=== PATIENT | male | born 1995 | race Caucasian/White ===

== ENCOUNTER 2017-08-14 22:27 | Emergency (ER) | payer OTHER ==
[~2017-08-14] VITALS: Ht 180.3 cm; Wt 113.4 kg
[~2017-08-14 22:27] MED LIST: ACHD5005 PO; AMOX500C2 PO; CEPH-38 PO; IBP600T1 PO; LRT10T PO; ONDA8TAB13 PO; SERT50TA PO
--- OUTSIDE RECORDS SUMMARY | 2017-08-14 22:33 | XMS REPORT | Continuity of Care Document ---
Author Author Formerly [facility] Address Unknown Phone Unavailable Allergies Active Description Code Type Severity Reaction Onset Reported/Identified Relationship to Patient Clinical Status Yes codeine [id number] Drug Allergy Mild SWELLING, RASH 06/07/2008 Yes CODIENE CODIENE Mild N/A 07/21/2008 Yes codeine Drug Allergy 11/13/2009 Yes codeine Drug Allergy N/A N/A 11/13/2009 Yes OPIOIDS OPIOIDS Severe N/A 01/05/2015 Medications There is no data. Problems Date Dx Coded Attending Type Code Diagnosis Diagnosed By 09/30/2008 DONY WAITE DO3.89 Meningococcal, Other Specified Single Bacterial Disease 09/30/2008 DONY WAITE DO V05.3 Hepatitis Viral/all 09/30/2008 DONY WAITE DO V06.4 Mmr, Jssbcxb-loelq-vsrdzzj Vac 09/30/2008 DONY WAITE DO V06.5 Dt, Tetanus-diphtheria [td] ,tdap 09/30/2008 DONY WAITE DO V03.89 Meningococcal, Other Specified Single Bacterial Disease 09/30/2008 DONY WAITE DO V05.3 Hepatitis Viral/all 09/30/2008 DONY WAITE DO V06.4 Mmr, Phmsapo-iqajn-dcskviw Vac 09/30/2008 DONY WAITE DO V06.5 Dt, Tetanus-diphtheria [td] ,tdap 09/30/2008 NATALIE AMADOR APRN V03.89 Meningococcal, Other Specified Single Bacterial Disease 09/30/2008 NATALIE AMADOR APRN V05.3 Hepatitis Viral/all 09/30/2008 NATALIE AMADOR APRN V06.4 Mmr, Ejnrgjq-zsjjl-mvadgro Vac 09/30/2008 NATALIE AMADOR APRN V06.5 Dt, Tetanus-diphtheria [td] ,tdap 09/30/2008 NATALIE AMADOR APRN V03.89 Meningococcal, Other Specified Single Bacterial Disease 09/30/2008 MARJORIE BLOOD, NATALIE Farrar V05.3 Hepatitis Viral/all 09/30/2008 MARJORIE BLOOD, NATALIE Leni V06.4 Mmr, Jiwjbaj-ywpil-wxmlhrj Vac 09/30/2008 MARJORIE ESTEBANN, NATALIE Farrar V06.5 Dt, Tetanus-diphtheria [td] ,tdap 09/30/2008 V03.89 Meningococcal , Other Specified Single Bacterial Disease 09/30/2008 V05.3 Hepatitis Viral/all 09/30/2008 V06.4 Mmr, Measles- mumps-rubella Vac 09/30/2008 V06.5 Dt, Tetanus- diphtheria [td] ,tdap 09/30/2008 V03.89 Meningococcal , Other Specified Single Bacterial Disease 09/30/2008 V05.3 Hepatitis Viral/all 09/30/2008 V06.4 Mmr, Measles- mumps-rubella Vac 09/30/2008 V06.5 Dt, Tetanus- diphtheria [td] ,tdap 09/30/2008 V03.89 Meningococcal , Other Specified Single Bacterial Disease 09/30/2008 V05.3 Hepatitis Viral/all 09/30/2008 V06.4 Mmr, Measles- mumps-rubella Vac 09/30/2008 V06.5 Dt, Tetanus- diphtheria [td] ,tdap 09/30/2008 OBED BRIZUELA APRN V03.89 Meningococcal, Other Specified Single Bacterial Disease 09/30/2008 OBED BRIZUELA APRN V05.3 Hepatitis Viral/all 09/30/2008 OBED BRIZUELA APRN V06.4 Mmr, Xjtxrsx-fvpjg-rrkshbz Vac 09/30/2008 OBED BRIZUELA APRN V06.5 Dt, Tetanus-diphtheria [td] ,tdap 12/26/2008 DONY WAITE DO 461.9 Acute Sinusitis, Unspecified 12/26/2008 DONY WAITE DO 466.0 Acute Bronchitis 12/26/2008 DONY WAITE DO 461.9 Acute Sinusitis, Unspecified 12/26/2008 DONY WAITE DO 466.0 Acute Bronchitis 12/26/2008 NATALIE AMADOR APRN 461.9 Acute Sinusitis, Unspecified 12/26/2008 NATALIE AMADOR APRN 466.0 Acute Bronchitis 12/26/2008 NATALIE AMADOR APRN 461.9 Acute Sinusitis, Unspecified 12/26/2008 NATALIE AMADOR APRN 466.0 Acute Bronchitis 12/26/2008 461.9 Acute Sinusitis, Unspecified 12/26/2008 466.0 Acute Bronchitis 12/26/2008 461.9 Acute Sinusitis, Unspecified 12/26/2008 466.0 Acute Bronchitis 12/26/2008 461.9 Acute Sinusitis, Unspecified 12/26/2008 466.0 Acute Bronchitis 12/26/2008 OBED BRIZUELA APRN 461.9 Acute Sinusitis, Unspecified 12/26/2008 OBED BRIZUELA APRN 466.0 Acute Bronchitis 05/31/2009 DONY WAITE DO V05.4 Varicella, Chickenpox 05/31/2009 DONY WAITE DO V05.4 Varicella, Chickenpox 05/31/2009 NATALIE AMADOR APRN V05.4 Varicella, Chickenpox 05/31/2009 NATALIE AMADOR APRN V05.4 Varicella, Chickenpox 05/31/2009 V05.4 Varicella, Chickenpox 05/31/2009 V05.4 Varicella, Chickenpox 05/31/2009 V05.4 Varicella, Chickenpox 05/31/2009 OBED BRIZUELA APRN V05.4 Varicella, Chickenpox 07/23/2009 Ot 923.20 07/23/2009 Ot 959.4 07/23/2009 Ot E000.8 07/23/2009 Ot E030 07/23/2009 Ot E849.0 07/23/2009 Ot E880.9 11/13/2009 DONY WAITE DO 465.9 Upper Respiratory Infection 11/13/2009 DONY WAITE DO 691.8 Dermatitis Atopic Eczema 11/13/2009 DONY WAITE DO 465.9 Upper Respiratory Infection 11/13/2009 DONY WAITE DO 691.8 Dermatitis Atopic Eczema 11/13/2009 NATALIE AMADOR APRN 465.9 Upper Respiratory Infection 11/13/2009 NATALIE AMADOR APRN 691.8 Dermatitis Atopic Eczema 11/13/2009 NATALIE AMADOR APRN 465.9 Upper Respiratory Infection 11/13/2009 NATALIE AMADOR APRN 691.8 Dermatitis Atopic Eczema 11/13/2009 465.9 Upper Respiratory Infection 11/13/2009 691.8 Dermatitis Atopic Eczema 11/13/2009 465.9 Upper Respiratory Infection 11/13/2009 691.8 Dermatitis Atopic Eczema 11/13/2009 465.9 Upper Respiratory Infection 11/13/2009 691.8 Dermatitis Atopic Eczema 11/13/2009 OBED BRIZUELA APRN 465.9 Upper Respiratory Infection 11/13/2009 OBED BRIZUELA APRN 691.8 Dermatitis Atopic Eczema 12/27/2009 DONY WAITE DO 078.10 VIRAL WARTS UNSPECIFIED 12/27/2009 DONY WAITE DO 078.10 VIRAL WARTS UNSPECIFIED 12/27/2009 NATALIE AMADOR APRN 078.10 VIRAL WARTS UNSPECIFIED 12/27/2009 NATALIE AMADOR APRN 078.10 VIRAL WARTS UNSPECIFIED 12/27/2009 078.10 VIRAL WARTS UNSPECIFIED 12/27/2009 078.10 VIRAL WARTS UNSPECIFIED 12/27/2009 078.10 VIRAL WARTS UNSPECIFIED 12/27/2009 OBED BRIZUELA APRN 078.10 VIRAL WARTS UNSPECIFIED 02/07/2011 DONY WAITE DO 787.03 Vomiting Alone 02/07/2011 DONY WAITE DO V04.81 Flu Dx (3 Yrs And Above, Im) 02/07/2011 DONY WAITE DO 787.03 Vomiting Alone 02/07/2011 DONY WAITE DO V04.81 Flu Dx (3 Yrs And Above, Im) 02/07/2011 NATALIE AMADOR APRN 787.03 Vomiting Alone 02/07/2011 NATALIE AMADOR APRN V04.81 Flu Dx (3 Yrs And Above, Im) 02/07/2011 NATALIE AMADOR APRN 787.03 Vomiting Alone 02/07/2011 NATALIE AMADOR APRN V04.81 Flu Dx (3 Yrs And Above, Im) 02/07/2011 787.03 Vomiting Alone 02/07/2011 V04.81 Flu Dx (3 Yrs And Above, Im) 02/07/2011 787.03 Vomiting Alone 02/07/2011 V04.81 Flu Dx (3 Yrs And Above, Im) 02/07/2011 787.03 Vomiting Alone 02/07/2011 V04.81 Flu Dx (3 Yrs And Above, Im) 02/07/2011 OBED BRIZUELA APRN 787.03 Vomiting Alone 02/07/2011 OBED BRIZUELA APRN V04.81 Flu Dx (3 Yrs And Above, Im) 03/13/2011 DONY WAITE DO 558.9 GASTROENTERITIS 03/13/2011 DONY WAITE DO 558.9 GASTROENTERITIS 03/13/2011 NATALIE AMADOR APRN 558.9 GASTROENTERITIS 03/13/2011 NATALIE AMADOR APRN 558.9 GASTROENTERITIS 03/13/2011 558.9 GASTROENTERITIS 03/13/2011 558.9 GASTROENTERITIS 03/13/2011 558.9 GASTROENTERITIS 03/13/2011 OBED BRIZUELA APRN 558.9 GASTROENTERITIS 08/19/2011 Ot 780.4 08/19/2011 Ot 992.5 08/19/2011 Ot E000.8 08/19/2011 Ot E900.9 01/06/2012 DONY WAITE DO 787.01 NAUSEA WITH VOMITING 01/06/2012 DONY WAITE DO 787.01 NAUSEA WITH VOMITING 01/06/2012 NATALIE AMADOR APRN 787.01 NAUSEA WITH VOMITING 01/06/2012 NATALIE AMADOR APRN 787.01 NAUSEA WITH VOMITING 01/06/2012 787.01 NAUSEA WITH VOMITING 01/06/2012 787.01 NAUSEA WITH VOMITING 01/06/2012 787.01 NAUSEA WITH VOMITING 01/06/2012 OBED BRIZUELA APRN 787.01 NAUSEA WITH VOMITING 05/13/2012 DONY WAITE DO 346.90 MIGRAINE HEADACHE 05/13/2012 NATALIE AMADOR APRN 346.90 MIGRAINE HEADACHE 05/13/2012 NATALIE AMADOR APRN 346.90 MIGRAINE HEADACHE 05/13/2012 346.90 MIGRAINE HEADACHE 05/13/2012 346.90 MIGRAINE HEADACHE 05/13/2012 346.90 MIGRAINE HEADACHE 05/13/2012 OBED BRIZUELA APRN 346.90 MIGRAINE HEADACHE 06/03/2012 NATALIE AMADOR APRN 780.99 ANHEDONIA 06/03/2012 780.99 ANHEDONIA 06/03/2012 780.99 ANHEDONIA 06/03/2012 780.99 ANHEDONIA 06/03/2012 OBED BRIZUELA APRN 780.99 ANHEDONIA 07/29/2012 692.0 CONTACT DERMATITIS DUE TO DETERGENTS 07/29/2012 692.0 CONTACT DERMATITIS DUE TO DETERGENTS 07/29/2012 OBED BRIZUELA APRN 692.0 CONTACT DERMATITIS DUE TO DETERGENTS 08/04/2012 300.23 AN SOCIAL PHOBIA 08/04/2012 314.01 ADHD COMBINED 08/04/2012 OBED BRIZUELA APRN 300.23 AN SOCIAL PHOBIA 08/04/2012 OBED BRIZUELA APRN 314.01 ADHD COMBINED 08/19/2012 JT DONNELLY DO Ot 724.2 LUMBAGO 07/19/2013 MELQUIADES FOSTER Ot 276.50 VOLUME DEPLETION, UNSPECIFIED 07/19/2013 MELQUIADES FOSTER Ot 784.0 HEADACHE 07/19/2013 MELQUIADES FOSTER Ot 787.01 NAUSEA WITH VOMITING 07/19/2013 MELQUIADES FOSTER Ot 787.91 DIARRHEA 01/05/2015 MAGY PHILLIP MD Ot R10.84 GENERALIZED ABDOMINAL PAIN 01/06/2015 MAGY PHILLIP MD Ot R10.84 Procedures Code [place] [address] ROUTINE VENIPUNCTURE 05/21/2012 23320 CMP 05/21/2012 64077 TSH 05/21/2012 39119 CBC 05/21/2012 PSYCH NORRISFATEMEH FARLEY 06/03/2012 74835 PSYCH DIAG EVAL W/MED SRVCS 08/04/2012 Results There is no data. Encounters ACCT No. Visit Date/Time Discharge Status Pt. Type Provider Facility Loc./Unit Complaint [id number] 08/04/2012 12:25:00 08/04/2012 23:59:59 CLS Outpatient OBED BRIZUELA APRN [id number] 06/03/2012 12:55:00 06/03/2012 23:59:59 CLS Outpatient NATALIE AMADOR APRN [id number] 05/21/2012 15:40:00 05/21/2012 23:59:59 CLS Outpatient NATALIE AMADOR APRN [id number] 05/13/2012 14:32:00 05/13/2012 23:59:59 [place] [id number] 05/31/2011 11:57:00 05/31/2011 23:59:59 CLS Outpatient DONY WAITE DO [id number] 08/04/2012 12:25:00 Document Registration [id number] 07/29/2012 11:55:00 Document Registration [id number] 07/25/2012 09:32:00 Document Registration [id number] 01/05/2015 13:32:00 01/05/2015 15:24:00 DIS Emergency MAGY PHILLIP MD [facility] ER ABD PAIN [id number] 07/19/2013 12:59:00 07/19/2013 23:59:59 CLS Emergency MELQUIADES FOSTER [facility] ER DIZZINESS, HEADACHE [id number] 11/01/2012 15:23:00 11/01/2012 23:59:59 CLS Outpatient [id number] 10/23/2012 14:54:00 10/23/2012 23:59:59 CLS Outpatient [id number] 08/22/2012 13:19:00 08/22/2012 23:59:59 CLS Outpatient [id number] 08/19/2012 13:44:00 08/19/2012 17:10:00 DIS Emergency JT DONNELLY DO [facility] ER BACK PAIN [id number] 08/08/2012 14:02:00 08/08/2012 23:59:59 CLS Outpatient [id number] 07/28/2012 08:52:00 07/28/2012 23:59:59 CLS Outpatient [id number] 08/14/2017 22:28:00 ACT Emergency ZANE TINSLEY MD [facility] ER HAND INJ [id number] 08/19/2011 17:52:00 Document Registration [id number] 07/23/2009 21:02:00 Document Registration
--- NOTE | 2017-08-14 23:39 | ED Upper Extremity ---
General Chief Complaint: Laceration Stated Complaint: HAND INJ Nursing Triage Note: patient reports laceration to L hand after a knife went through it Nursing Sepsis Screen: No Definite Risk Source: patient Exam Limitations: no limitations History of Present Illness Date Seen by Provider: Aug 14, 2017 Time Seen by Provider: 23:33 Initial Comments The patient presents to the ER by private conveyance with a chief complaint he was trying to find the balance point on a knife and it fell out of his hand towards his foot so he skipped his left hand down to catch it and it stabbed him through the webbing between his first and second digits completely penetrating his hand. He cleaned the wound out himself with hydrogen peroxide and then came here to the ER. He has not taken anything for pain. He has allergies to codeine and opiates. He's having no nausea and only modest pain. It is not bleeding any longer. Allergies and Home Medications Allergies Coded Allergies: codeine (Unverified Allergy, Mild, SWELLING, RASH, 06/07/08) Uncoded Allergies: OPIOIDS (Allergy, Severe, 01/05/15) CODIENE (Allergy, Mild, 07/21/08) Home Medications Sulfamethoxazole/Trimethoprim 1 Each Tablet, 1 EACH PO BID Prescribed by: ZANE TINSLEY on 08/15/17 0128 Patient Home Medication List Home Medication List Reviewed: Yes Constitutional: No chills, No fever EENTM: No hearing loss, No ear pain Respiratory: No cough, No short of breath Cardiovascular: No chest pain, No edema Gastrointestinal: No abdominal pain, No constipation, No diarrhea Past Symizuo-Vbxuoz-Gnfugs Hx Patient Social History Alcohol Use: Denies Use Recreational Drug Use: No Smoking Status: Never a Smoker Recent Foreign Travel: No Contact w/Someone Who Travel: No Recent Infectious Disease Expo: No Seasonal Allergies Seasonal Allergies: Yes Past Medical History Surgeries: No Respiratory: No Cardiac: No Neurological: No Gastrointestinal: No Musculoskeletal: No Endocrine: No Cancer: No Psychosocial: Yes Anxiety Physical Exam Vital Signs Vital Signs - First Documented 08/14/17 23:34 Temp 98.5 Pulse 69 Resp 18 B/P (MAP) 137/97 (110) Pulse Ox 100 Capillary Refill : Less Than 3 Seconds General Appearance: WD/WN, no apparent distress HEENT: PERRL/EOMI, pharynx normal Cardiovascular: normal peripheral pulses, regular rate, rhythm Respiratory: no respiratory distress, no accessory muscle use Wrist: Yes normal inspection, Yes non-tender, Yes no evidence of injury, Yes normal ROM Hand: Left (through and through laceration in the soft tissue of the webbing between first and second digits) Neurologic/Tendon: normal sensation, normal motor functions, normal tendon functions, responds to pain, no evidence tendon injury Neurologic/Psychiatric: alert, normal mood/affect, oriented x 3 Skin: normal color, warm/dry Procedures/Interventions Wound Location: Upper Extremities Other Wound Location Left hand in the webbing between the first and second digit Wound's Depth, Shape: linear (through and through) Wound Explored: clean Irrigated w/ Saline (ccs): 250 Betadine Prep?: Yes Anesthesia: 1% Lidocaine Volume Anesthetic (ccs): 9 Wound Debrided: minimal Suture: Prolene, Vicryl (40) Suture Size: 4-0 Number of Sutures: 8 Layer Closure?: 1 Number Deep Layer Sutures: 1 Progress Patient's hand was cleaned thoroughly with chlorhexidine soap water and then the exterior was doused with Betadine. The wound was then gently cleansed and irrigated with normal saline and infiltrated in a ring fashion around the wound with 1% lidocaine without epinephrine and a small artery approximately 1 mm or less diameter began to exsanguinate. He was cross clamped with the curved hemostat and pressure was applied for 25 minutes. The clamp was removed and the artery was hemostatic so began to suture within the artery started bleeding again. We re-cleaned with chlorhexidine soap water blotted and cross clamped the artery again lifting it and tying a Vicryl 40 ligature across the artery causing instant hemostasis. The wound was then flushed again with saline and skin edges were reapproximated and closed with 5 4-0 Prolene simple interrupted sutures on the 2.5 cm palmar side and then the wound was re-cleaning and the dorsal 1 cm wound was reapproximated and closed with 2 4-0 Prolene sutures that were simple interrupted. The patient tolerated the procedure well. Progress/Results/Core Measures Results/Orders My Orders Orders - ZANE TINSLEY Pertuss(Acell),Tet Adult (Boostrix (08/14/17 23:45) Lidocaine 1% Inj 20 Ml (Xylocaine 1% Inj (6/21/18 23:45) Ketorolac Injection (Toradol Injection) (08/14/17 23:45) Medications Given in ED Current Medications Medications Dose Ordered Sig/Ned Route Start Time Stop Time Status Last Admin Dose Admin Diphtheria/ Tetanus/Acell Pertussis 0.5 ml ONCE ONCE IM 08/14/17 23:45 08/14/17 23:46 DC 08/14/17 23:46 0.5 ML Ketorolac Tromethamine 30 mg ONCE ONCE IM 08/14/17 23:45 08/14/17 23:46 DC 08/14/17 23:46 30 MG Lidocaine HCl 20 ml ONCE ONCE INJ 08/14/17 23:45 08/14/17 23:46 DC 08/15/17 00:25 5 ML Vital Signs/I&O 08/14/17 08/15/17 23:34 01:30 Temp 98.5 98.5 Pulse 69 69 Resp 18 18 B/P (MAP) 137/97 (110) 137/97 (110) Pulse Ox 100 100 Blood Pressure Mean: 110 Progress Progress Note : Time: :26 Progress Note After the wound was re-closed it was hemostatic and there is no swelling noted immediately. The fingertips had capillary refill 5 all less than 2 seconds and there is a good radial pulse palpable and symmetric to the right hand. He had good flexion and extension of his hand complete range of motion. Sensation was intact except around the wound where it had been anesthetized. Departure Impression Primary Impression: Laceration of hand, left Qualified Codes: S61.412A - Laceration without foreign body of left hand, initial encounter Disposition: HOME, SELF-CARE Condition: Improved Departure-Patient Inst. Decision time for Depature: :26 Referrals: NO,LOCAL PHYSICIAN (PCP/Family) Primary Care Physician Patient Instructions: Laceration Repair With Stitches (DC) Add. Discharge Instructions: Keep the wound clean with regular soap and water. For the first 3 days keep a dressing on it changed daily and as needed for soiling. You can apply a thin layer of Vaseline over the skin edges to help keep dirt out after that. If the wound starts to get red swollen hot or you begin to have fevers or nausea a should return to a doctor. 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 Return to the ER in about 10 days to have the stitches removed or you can go to the doctor of your choice. All discharge instructions reviewed with patient and/or family. Voiced understanding. Scripts Sulfamethoxazole/Trimethoprim (Bactrim Ds Tablet) 1 Each Tablet 1 EACH PO BID for 5 Days, #10 TAB 0 Refills Prov: ZANE TINSLEY 08/15/17 Work/School Note: Work Release Form Date Seen in the Emergency Department: Aug 15, 2017 Return to Work: Aug 16, 2017 Restrictions: Need Release from Doctor Other Restrictions Listed Below: Keep left hand clean and dressed for 3 days until 08/18/2017. ZANE TINSLEY Aug 14, 2017 23:39
[2017-08-14] MEDS ORDERED: LIDOCAINE 1% INJ 20 ML 20 ML VIAL INJ ONE (23:45)
[2017-08-14] MEDS ORDERED: KETOROLAC 30 MG/ML VIAL IM ONE (23:45)
[2017-08-14] MEDS ORDERED: TETANUS,DIPTH,PERTUSS P/F (BOOSTRIX) 0.5 ML VIAL IM ONE (23:45)
[2017-08-15] MEDS ORDERED: SULF1TAB35 PO (01:28)
[2017-08-15 01:30] VITALS: BP 137/97
== END 2017-08-15 01:31 | disposition home or self-care (01) ==
LOC: EDUNIT# 22:27 → ER 22:28
DX: S61.412A Laceration without foreign body of left hand, initial encounter (principal); F41.9 Anxiety disorder, unspecified; Z23 Encounter for immunization; Z88.5 Allergy status to narcotic agent; W26.0XXA Contact with knife, initial encounter
CPT/HCPCS: 12052; 90471; 90715; 96372

== ENCOUNTER 2018-07-31 06:54 | Emergency (ER) | payer SELFPAY ==
[~2018-07-31] VITALS: Ht 177.8 cm; Wt 85.3 kg
[~2018-07-31 06:54] MED LIST changes: +SULF1TAB35 PO
[2018-07-31 07:37] LABS: BILIRUBIN,URINE NEGATIVE (NEGATIVE); CLARITY,URINE CLEAR; COLOR,URINE YELLOW; GLUCOSE, URINE (UA) NEGATIVE (NEGATIVE); KETONES,URINE NEGATIVE (NEGATIVE); LEUKOCYTE ESTERASE ,URINE NEGATIVE (NEGATIVE); NITRITE,URINE NEGATIVE (NEGATIVE); PH,URINE 7 (5-9); PROTEIN,URINE NEGATIVE (NEGATIVE); UROBILINOGEN,URINE NORMAL (NORMAL)
[2018-07-31 07:43] LABS: BACTERIA,URINE NEGATIVE /HPF
--- NOTE | 2018-07-31 07:44 | ED Abdominal Pain ---
General Chief Complaint: Abdominal/GI Problems Stated Complaint: ABD PAIN Nursing Triage Note: upper abdominal pain Sepsis Screen: No Definite Risk Source of Information: Patient Exam Limitations: No Limitations History of Present Illness Date Seen by Provider: Jul 31, 2018 Time Seen by Provider: 07:11 Initial Comments This 22-year-old young man presents to the emergency room with pain and bulging in the region of the superior umbilicus. He has had some drainage in the umbilicus for many months but noticed the pain and bulging worsening 3 days ago. It feels better when lying flat. It is worse with movement and Valsalva. He noted at one point there appeared to be some stool like drainage in the umbilicus. He denies any fever. Allergies and Home Medications Allergies Coded Allergies: codeine (Unverified Allergy, Mild, SWELLING, RASH, 06/07/08) Uncoded Allergies: OPIOIDS (Allergy, Severe, 01/05/15) CODIENE (Allergy, Mild, 07/21/08) Home Medications Sulfamethoxazole/Trimethoprim 1 Each Tablet, 1 EACH PO BID Prescribed by: ZANE TINSLEY on 08/15/17 0128 Sulfamethoxazole/Trimethoprim 1 Each Tablet, 1 EACH PO BID Prescribed by: ABBEY FLOWER on 07/31/18 1045 Patient Home Medication List Home Medication List Reviewed: Yes Review of Systems Review of Systems Constitutional: no symptoms reported EENTM: No Symptoms Reported Respiratory: No Symptoms Reported Cardiovascular: No Symptoms Reported Gastrointestinal: See HPI Genitourinary: No Symptoms Reported Musculoskeletal: no symptoms reported Skin: see HPI Psychiatric/Neurological: No Symptoms Reported Endocrine: No Symptoms Reported Past Phtfdnr-Yhqlhm-Prvzns Hx Past Med/Social Hx: Reviewed Nursing Past Med/Soc Hx Patient Social History Alcohol Use: Denies Use Recreational Drug Use: No Smoking Status: Never a Smoker Recent Foreign Travel: No Contact w/Someone Who Travel: No Recent Infectious Disease Expo: No Recent Hopitalizations: No Immunizations Up To Date Tetanus Booster (TDap): Unknown Seasonal Allergies Seasonal Allergies: Yes Past Medical History Surgeries: No Respiratory: No Cardiac: No Neurological: No Genitourinary: No Gastrointestinal: No Musculoskeletal: No Endocrine: No HEENT: No Cancer: No Psychosocial: Yes Anxiety Integumentary: No Blood Disorders: No Adverse Reaction/Blood Tranf: No Physical Exam Vital Signs Vital Signs - First Documented 07/31/18 07:06 Temp 98.3 Pulse 77 Resp 18 B/P (MAP) 134/73 (93) Pulse Ox 98 O2 Delivery Room Air Capillary Refill : Less Than 3 Seconds Height/Weight/BMI Height: 5'10.00" Weight: 188lbs. oz. 85.844752hy; 34.86 BMI Method:Stated General Appearance: WD/WN, no apparent distress HEENT: PERRL/EOMI, normal ENT inspection Neck: normal inspection Respiratory: lungs clear, normal breath sounds, no respiratory distress Cardiovascular: regular rate, rhythm, no edema, no murmur Gastrointestinal: normal bowel sounds, soft, tenderness (There is area of fullness and bulging at the superior aspect of the umbilicus. There is a purulent drainage coming from the pit of the umbilicus. This area is quite tender.) Extremities: normal inspection, no pedal edema Neurologic/Psychiatric: operation shift supervisor II-XII nml as tested, no motor/sensory deficits, alert, normal mood/affect, oriented x 3 Skin: normal color, warm/dry Procedures/Interventions Suture Size: 4-0 Progress/Results/Core Measures Results/Orders Lab Results Laboratory Tests Test 07/31/18 07:09 07/31/18 07:45 Range/Units Urine Color YELLOW Urine Clarity CLEAR Urine pH 7 5-9 Urine Specific [place] 1.010 L 1.016-1.022 Urine Protein NEGATIVE NEGATIVE Urine Glucose (UA) NEGATIVE NEGATIVE Urine Ketones NEGATIVE NEGATIVE Urine Nitrite NEGATIVE NEGATIVE Urine Bilirubin NEGATIVE NEGATIVE Urine Urobilinogen NORMAL NORMAL MG/DL Urine Leukocyte Esterase NEGATIVE NEGATIVE Urine RBC (Auto) NEGATIVE NEGATIVE Urine RBC NONE /HPF Urine WBC NONE /HPF Urine Squamous Epithelial Cells NONE /HPF Urine Crystals NONE /LPF Urine Bacteria NEGATIVE /HPF Urine Casts NONE /LPF Urine Mucus NEGATIVE /LPF Urine Culture Indicated NO White Blood Count 8.6 4.3-11.0 10^3/uL Red Blood Count 5.48 4.35-5.85 10^6/uL Hemoglobin 15.8 13.3-17.7 G/DL Hematocrit 47 40-54 % Mean Corpuscular Volume 86 80-99 FL Mean Corpuscular Hemoglobin 29 25-34 PG Mean Corpuscular Hemoglobin Concent 34 32-36 G/DL Red Cell Distribution Width 13.6 10.0-14.5 % Platelet Count 269 130-400 10^3/uL Mean Platelet Volume 9.0 7.4-10.4 FL Neutrophils (%) (Auto) 49 42-75 % Lymphocytes (%) (Auto) 36 12-44 % Monocytes (%) (Auto) 12 0-12 % Eosinophils (%) (Auto) 2 0-10 % Basophils (%) (Auto) 1 0-10 % Neutrophils # (Auto) 4.2 1.8-7.8 X 10^3 Lymphocytes # (Auto) 3.1 1.0-4.0 X 10^3 Monocytes # (Auto) 1.1 H 0.0-1.0 X 10^3 Eosinophils # (Auto) 0.2 0.0-0.3 10^3/uL Basophils # (Auto) 0.1 0.0-0.1 10^3/uL Sodium Level 140 135-145 MMOL/L Potassium Level 4.0 3.6-5.0 MMOL/L Chloride Level 103 98-107 MMOL/L Carbon Dioxide Level 28 21-32 MMOL/L Anion Gap 9 5-14 MMOL/L Blood Urea Nitrogen 14 7-18 MG/DL Creatinine 1.04 0.60-1.30 MG/DL Estimat Glomerular Filtration Rate > 60 BUN/Creatinine Ratio 13 Glucose Level 97 70-105 MG/DL Calcium Level 9.9 8.5-10.1 MG/DL Corrected Calcium 8.5-10.1 MG/DL Total Bilirubin 0.5 0.1-1.0 MG/DL Aspartate Amino Transf (AST/SGOT) 16 5-34 U/L Alanine Aminotransferase (ALT/SGPT) 31 0-55 U/L Alkaline Phosphatase 62 40-136 U/L C-Reactive Protein High Sensitivity 0.14 0.00-0.50 MG/DL Total Protein 7.5 6.4-8.2 GM/DL Albumin 4.8 H 3.2-4.5 GM/DL Micro Results Microbiology 07/31/18 Gram Stain - Final, Resulted 07/31/18 Wound Culture, Resulted Pending My Orders Orders - ABBEY MALONEY MD Ua Culture If Indicated (07/31/18 07:11) Cbc With Automated Diff (07/31/18 07:40) Comprehensive Metabolic Panel (07/31/18 07:40) Hs C Reactive Protein (07/31/18 07:40) Wound Culture (07/31/18 07:40) Ct Abdomen/Pelvis W (07/31/18 07:40) Ed Iv/Invasive Line Start (07/31/18 07:40) Vital Signs/I&O 07/31/18 07/31/18 07:06 10:55 Temp 98.3 98.1 Pulse 77 56 Resp 18 16 B/P (MAP) 134/73 (93) 121/71 (88) Pulse Ox 98 98 O2 Delivery Room Air Blood Pressure Mean: 93 Progress Progress Note #1: Time: 07:43 Progress Note Patient seen and examined. He has a pulsatile bulging at the superior aspect of the umbilicus on palpation. This area is exquisitely tender. He also has a purulent drainage pooling in the umbilicus. This was collected for culture. Labs and CT have been ordered. Progress Note #2: Progress Note CT was discussed with Dr. Rueda who presented to the ER to see the patient. After review of CT, we believe there may be a small abscess or cyst beneath umbilicus. Since it is draining on its own, we will treat with antibiotics and have him follow up in the clinic. If further intervention is needed, he may need umbilectomy. Diagnostic Imaging Diagonstic Imaging: CT Plain Films/CT/US/NM/MRI: abdomen, pelvis Comments CT scan reviewed by me and report reviewed. See report below: NAME: LEROY FLOR [facility] REC#: [id number] PT STATUS: REG ER : 1995 PHYSICIAN: ABBEY MALONEY MD ADMIT DATE: 07/31/18/ER Draft Date of Exam:07/31/18 CT ABDOMEN/PELVIS W PROCEDURE: CT abdomen and pelvis with contrast. TECHNIQUE: Multiple contiguous axial images were obtained through the abdomen and pelvis after administration of intravenous contrast. Auto Exposure Controls were utilized during the CT exam to meet ALARA standards for radiation dose reduction. INDICATION: Pain above the umbilicus. The study is performed to evaluate for periumbilical abscess. No prior studies are available for comparison. FINDINGS: The lung bases are clear. Liver and gallbladder are unremarkable. There is no biliary ductal dilatation. The pancreas and spleen are unremarkable. No adrenal mass is detected. Kidneys and aorta are unremarkable. The small and large bowel loops are normal caliber. The appendix is visualized in the right lower quadrant and appears unremarkable. No free fluid or fluid collection in the abdomen or pelvis is detected. No abdominal wall defect or hernia is seen. There is some slight soft tissue thickening in the umbilicus but no fluid collection is seen. No periumbilical abnormality is detected. The bladder is unremarkable. Prostate is unremarkable. The bony structures are nonacute. IMPRESSION: There is some thickening of the skin involving the umbilicus but no fluid collection or abscess is identified. No other significant abnormality is identified. Dictated on workstation # [id number] Dict: 07/31/18 0850 Trans: 07/31/18 0905 [id number] Interpreted by: MATT TAYLOR MD Departure Impression Primary Impression: Abscess Additional Impression: Umbilical pain Disposition: HOME, SELF-CARE Condition: Stable Departure-Patient Inst. Decision time for Depature: 10:44 Referrals: WALLACE RUEDA DO NO,LOCAL PHYSICIAN (PCP) Primary Care Physician Patient Instructions: Skin Abscess Add. Discharge Instructions: Complete your antibiotics as prescribed. For pain you may take ibuprofen up to 600 mg every 6 hours as needed and Tylenol (acetaminophen) up to 1000 mg every 6 hours as needed. Return to care if you have worsening symptoms despite taking antibiotics and jmuh-yhb-sejgsdh pain medications, especially if you develop fever over 100. Follow-up with Dr. Rueda in about 2 weeks. See his contact information below. All discharge instructions reviewed with patient and/or family. Voiced understanding. Scripts Sulfamethoxazole/Trimethoprim (Bactrim Ds Tablet) 1 Each Tablet 1 EACH PO BID, #20 TAB Prov: ABBEY MALONEY MD 07/31/18 ABBEY MALONEY MD Jul 31, 2018 07:43
[2018-07-31 07:55] LABS: BASOPHILS # (AUTO) 0.1 10^3/uL (0.0-0.1); BASOPHILS % (AUTO) 1 % (0-10); EOSINOPHILS # (AUTO) 0.2 10^3/uL (0.0-0.3); EOSINOPHILS % (AUTO) 2 % (0-10); HEMATOCRIT 47 % (40-54); HEMOGLOBIN 15.8 G/DL (13.3-17.7); LYMPHOCYTES # (AUTO) 3.1 X 10^3 (1.0-4.0); LYMPHOCYTES % (AUTO) 36 % (12-44); MEAN CORPUSCULAR HEMOGLOBIN 29 PG (25-34); MEAN CORPUSCULAR HGB CONC 34 G/DL (32-36); MEAN CORPUSCULAR VOLUME 86 FL (80-99); MONOCYTES # (AUTO) 1.1 X 10^3 (0.0-1.0); MONOCYTES % (AUTO) 12 % (0-12); NEUTROPHILS # (AUTO) 4.2 X 10^3 (1.8-7.8); NEUTROPHILS % (AUTO) 49 % (42-75); PLATELET COUNT 269 10^3/uL (130-400); RED CELL DISTRIBUTION WIDTH 13.6 % (10.0-14.5); WHITE BLOOD COUNT 8.6 10^3/uL (4.3-11.0)
--- NOTE | 2018-07-31 08:13 | NUR ---
Patient taken to CT via wheelchair.
[2018-07-31 08:14] LABS: ALANINE AMINOTRANSFERASE 31 U/L (0-55); ALBUMIN 4.8 GM/DL (3.2-4.5); ALKALINE PHOSPHATASE 62 U/L (40-136); BILIRUBIN,TOTAL 0.5 MG/DL (0.1-1.0); BUN/CREATININE RATIO 13; CALCIUM 9.9 MG/DL (8.5-10.1); CARBON DIOXIDE 28 MMOL/L (21-32); CHLORIDE 103 MMOL/L (98-107); CREATININE SERUM 1.04 MG/DL (0.60-1.30); GFR ESTIMATED > 60; GLUCOSE 97 MG/DL (70-105); SODIUM 140 MMOL/L (135-145); TOTAL PROTEIN 7.5 GM/DL (6.4-8.2)
--- NOTE | 2018-07-31 08:28 | NUR ---
Back to room from CT.
--- NOTE | 2018-07-31 09:06 | Diagnostic Imaging Report ---
PROCEDURE: CT abdomen and pelvis with contrast. TECHNIQUE: Multiple contiguous axial images were obtained through the abdomen and pelvis after administration of intravenous contrast. Auto Exposure Controls were utilized during the CT exam to meet ALARA standards for radiation dose reduction. INDICATION: Pain above the umbilicus. The study is performed to evaluate for periumbilical abscess. No prior studies are available for comparison. FINDINGS: The lung bases are clear. Liver and gallbladder are unremarkable. There is no biliary ductal dilatation. The pancreas and spleen are unremarkable. No adrenal mass is detected. Kidneys and aorta are unremarkable. The small and large bowel loops are normal caliber. The appendix is visualized in the right lower quadrant and appears unremarkable. No free fluid or fluid collection in the abdomen or pelvis is detected. No abdominal wall defect or hernia is seen. There is some slight soft tissue thickening in the umbilicus but no fluid collection is seen. No periumbilical abnormality is detected. The bladder is unremarkable. Prostate is unremarkable. The bony structures are nonacute. IMPRESSION: There is some thickening of the skin involving the umbilicus but no fluid collection or abscess is identified. No other significant abnormality is identified. Dictated by: Dictated on workstation # [id number]
[2018-07-31] MEDS ORDERED: SULF1TAB35 PO (10:45)
[2018-07-31 10:55] VITALS: BP 121/71
--- OUTSIDE RECORDS SUMMARY | 2018-07-31 11:14 | XMS REPORT ---
Author Author Migration, Doctor Organization [facility] Address Unknown Phone Unavailable Care Team Providers Care Supervisor Detasseling Crew Name Role Phone Migration, Doctor Unavailable Unavailable PROBLEMS Type Condition ICD9-CM Code PTL51-OT Code Onset Dates Condition Status SNOMED Code Problem Nausea with vomiting 787.01 Active 52130218 Problem Attention deficit disorder of childhood with hyperactivity 314.01 Active 687906183 Problem Social phobia 300.23 Active 86243776 Problem Other general symptoms 780.99 Active 281927157 Problem Contact dermatitis and other eczema due to detergents 692.0 Active 15086645 Problem Other and unspecified noninfectious gastroenteritis and colitis 558.9 Active 01127563 Problem Migraine, unspecified without mention of intractable migraine without mention of status migrainosus 346.90 Active 03745803 ALLERGIES No Information ENCOUNTERS Encounter Location Date Diagnosis [facility] [id number] [place] [phone] May, [facility] [id number] [place] [phone] May, [facility] [id number] [place] [phone] Nov, [facility] [id number] [place] [address] Nov, [facility] [id number] [place] [phone] Aug, [facility] [id number] [place] [phone] Jul, [facility] [id number] [place] [address] Jul, [facility] [id number] [place] [phone] Jul, [facility] [address] [place] [address] 18 May, 2012 [facility] [address] [id number] [place] [address] 10 May, 2012 [facility] [place] [facility] [address] [id number] [place] [address] May, [facility] [address] [id number] [place] [address] May, [facility] [place] [facility] [address] [id number] [place] [address] May, [facility] [place] [facility] [address] [id number] [place] [address] Apr, [facility] [place] [facility] [address] [id number] [place] [address] Apr, [facility] [address] [id number] [place] [address] Apr, [facility] [place] [facility] [address] [id number] [place] [address] Apr, [facility] [place] [facility] [address] [id number] [place] [address] Dec, [facility] [place] [facility] [address] [id number] [place] [address] Dec, [facility] [place] [facility] [address] [id number] [place] [address] Dec, [facility] [place] [facility] [address] [id number] [place] [address] Dec, [facility] [place] [facility] [address] [id number] [place] [address] Oct, [facility] [place] [facility] [address] [id number] [place] [address] May, [facility] [place] [facility] [address] [id number] [place] [address] May, [facility] [place] [facility] [id number] [address] Feb, [facility] [id number] [address] Jan, [facility] [id number] [address] Jan, [facility] [id number] [address] Dec, [facility] [id number] [address] Dec, [facility] [id number] [address] Nov, [facility] [id number] [address] Dec, IMMUNIZATIONS No Known Immunizations SOCIAL HISTORY Never Assessed REASON FOR VISIT EMR-[facility] [place] PLAN OF CARE VITAL SIGNS MEDICATIONS Unknown Medications RESULTS No Results PROCEDURES No Known procedures INSTRUCTIONS MEDICATIONS ADMINISTERED No Known Medications
--- OUTSIDE RECORDS SUMMARY | 2018-07-31 11:14 | XMS REPORT | Continuity of Care Document ---
Author Author [facility] Organization [facility] Address Unknown Phone Unavailable Care Team Providers Care Buckle Coverer Name Role Phone GREYSON MACHADO MD PP Insurance Providers Payer Name Policy Number Subscriber Name Relationship Elizabeth [facility] [id number] Wallace Flor 01 Self / Same As Patient Advance Directives Directive Response Recorded Date Advance Directives N 08/19/12 2:03pm Health Care Power of Supervisor Throwing Department N 08/19/12 2:03pm Organ Donor N 08/19/12 2:03pm Problems No Known Problems or Medical conditions. Social History History Response Recorded Date/Time Alcohol Use Denies Use 08/19/12 2:03pm Recreational Drug Use N 08/19/12 2:03pm Allergies, Adverse Reactions, Alerts Allergen Type Severity Reaction Last Updated Codeine Allergy Mild SWELLING, RASH 06/07/08 CODIENE Allergy Mild 07/21/08 Medications Medication Dose Units Route Sig Qty Days Hydrocodone Bit/Acetaminophen (Hydrocodon-Acetaminophen 5-325) 1 - 2 Each PO Q 4 HOURS PRN PAIN 14 Loratadine (Claritin) 10 Mg PO DAILY Sertraline HCl (Zoloft) 1 Tab PO DAILY Response Recorded Date/Time Status not known Unknown Results Test Date Result Interp. Ref. Range Activated Partial Thromboplast Time December 07, 2007 1:34am 36 SEC H 24-35 Anisocytosis December 07, 2007 1:34am Slight - BUN/Creatinine Ratio May 16, 2009 9:23pm 23 - Band Neutrophils December 07, 2007 1:34am 4 % - Basophils # (Auto) May 16, 2009 9:23pm 0.1 10^3/uL N 0.0-0.1 Basophils (%) (Auto) May 16, 2009 9:23pm 1 % N 0-10 Blood Urea Nitrogen May 16, 2009 9:23pm 16 MG/DL N 7-18 C-Reactive Protein May 16, 2009 9:23pm < 0.2 MG/DL L 0.2-0.9 Calcium Level May 16, 2009 9:23pm 9.4 MG/DL N 8.5-10.1 Carbon Dioxide Level May 16, 2009 9:23pm 30 MMOL/L N 21-32 Chloride Level May 16, 2009 9:23pm 104 MMOL/L N 101-110 Creatinine May 16, 2009 9:23pm 0.7 MG/DL N 0.6-1.3 D-Dimer December 07, 2007 1:34am 0.50 UG/ML H 0.00-0.49 Eosinophils # (Auto) May 16, 2009 9:23pm 0.3 10^3/uL N 0.0-0.3 Eosinophils % (Manual) December 07, 2007 1:34am 2 % - Eosinophils (%) (Auto) May 16, 2009 9:23pm 3 % N 0-10 Erythrocyte Sedimentation Rate July 21, 2008 12:40pm 1 MM/HR N 0-15 Glucose Level May 16, 2009 9:23pm 86 MG/DL N 70-126 Group A Streptococcus Screen May 16, 2009 9:29pm NEGATIVE - Hematocrit May 16, 2009 9:23pm 46 % N 37-52 Hemoglobin May 16, 2009 9:23pm 15.7 G/DL N 12.4-17.1 Hypochromasia December 07, 2007 1:34am Slight - Lymphocytes # (Auto) May 16, 2009 9:23pm 4.6 X 10^3 H 1.0-4.0 Lymphocytes % (Manual) December 07, 2007 1:34am 8 % - Lymphocytes (%) (Auto) May 16, 2009 9:23pm 40 % N 12-44 Mean Corpuscular Hemoglobin May 16, 2009 9:23pm 27 PG N 25-34 Mean Corpuscular Hemoglobin Concent May 16, 2009 9:23pm 34 G/DL N 32-36 Mean Corpuscular Volume May 16, 2009 9:23pm 79 FL N 77-95 Mean Platelet Volume May 16, 2009 9:23pm 10.1 FL N 7.4-10.4 Microcytosis December 07, 2007 1:34am Slight - Monocytes # (Auto) May 16, 2009 9:23pm 1.6 X 10^3 H 0.0-1.0 Monocytes % (Manual) December 07, 2007 1:34am 8 % - Monocytes (%) (Auto) May 16, 2009 9:23pm 14 % H 0-12 Monoscreen May 16, 2009 9:23pm NEGATIVE - Neutrophils # (Auto) May 16, 2009 9:23pm 5.0 X 10^3 N 1.8-7.8 Neutrophils % (Manual) December 07, 2007 1:34am 77 % - Neutrophils (%) (Auto) May 16, 2009 9:23pm 43 % N 42-75 Platelet Count May 16, 2009 9:23pm 347 10^3/uL N 130-400 Potassium Level May 16, 2009 9:23pm 4.1 MMOL/L N 3.6-5.0 Prothromb Time International Ratio December 07, 2007 1:34am 1.1 N 0.8-1.4 Prothrombin Time December 07, 2007 1:34am 15.0 SEC H 12.2-14.7 Reactive Lymphocytes December 07, 2007 1:34am 1 % - Red Blood Count May 16, 2009 9:23pm 5.82 10^6/uL H 4.30-5.45 Red Cell Distribution Width May 16, 2009 9:23pm 14.7 % H 10.0-14.5 Sodium Level May 16, 2009 9:23pm 141 MMOL/L N 135-145 Urine Bacteria May 16, 2009 9:23pm NEGATIVE - Urine Bilirubin May 16, 2009 9:23pm NEGATIVE - Urine Casts May 16, 2009 9:23pm NONE - Urine Clarity May 16, 2009 9:23pm CLEAR - Urine Color May 16, 2009 9:23pm YELLOW - Urine Crystals May 16, 2009 9:23pm NONE - Urine Culture Indicated May 16, 2009 9:23pm NO - Urine Glucose (UA) May 16, 2009 9:23pm NEGATIVE - Urine Ketones May 16, 2009 9:23pm NEGATIVE - Urine Leukocyte Esterase May 16, 2009 9:23pm NEGATIVE - Urine Mucus May 16, 2009 9:23pm NEGATIVE - Urine Nitrite May 16, 2009 9:23pm NEGATIVE - Urine Protein May 16, 2009 9:23pm NEGATIVE - Urine RBC May 16, 2009 9:23pm NONE /HPF - Urine Specific [place] May 16, 2009 9:23pm 1.010 L - Urine Squamous Epithelial Cells May 16, 2009 9:23pm RARE - Urine Urobilinogen May 16, 2009 9:23pm NORMAL MG/DL - Urine WBC May 16, 2009 9:23pm NONE /HPF - Urine pH May 16, 2009 9:23pm 8.0 - White Blood Count May 16, 2009 9:23pm 11.5 10^3/uL H 4.3-11.0 Lab Scanned Report November 14, 2010 4:20pm LAB Reports [id number] - Urine RBC (Auto) May 16, 2009 9:23pm NEGATIVE - Procedures Procedure Code Date Throat Culture 05/16/09 Encounters Encounter Location Date/Time Registered Emergency Room [facility] 08/19/12 1:44pm Departed Emergency Room [facility] 08/19/11 5:52pm
--- OUTSIDE RECORDS SUMMARY | 2018-07-31 11:14 | XMS REPORT ---
Author Author Migration, Doctor Organization [facility] Address Unknown Phone Unavailable Care Team Providers Care Fixed Income Portfolio Manager Name Role Phone Migration, Doctor Unavailable Unavailable PROBLEMS Type Condition ICD9-CM Code [id number] Code Onset Dates Condition Status SNOMED Code Problem Nausea with vomiting 787.01 Active 53459677 Problem Attention deficit disorder of childhood with hyperactivity 314.01 Active 715747709 Problem Social phobia 300.23 Active 21569091 Problem Other general symptoms 780.99 Active 517154416 Problem Contact dermatitis and other eczema due to detergents 692.0 Active 45275005 Problem Other and unspecified noninfectious gastroenteritis and colitis 558.9 Active 93240457 Problem Migraine, unspecified without mention of intractable migraine without mention of status migrainosus 346.90 Active 85252251 ALLERGIES No Information ENCOUNTERS Encounter Location Date Diagnosis [facility] [id number] [place] [address] 14 May, 2014 [facility] [id number] [place] [address] May, [facility] [id number] [place] [address] Nov, [facility] [id number] [place] [address] Nov, [facility] [id number] [place] [address] Aug, [facility] [id number] [place] [address] Jul, [facility] [id number] [place] [address] Jul, [facility] [id number] [place] [address] Jul, [facility] [address] [place] [address] 18 May, 2012 [facility] [address] [id number] [place] [address] 10 May, 2012 [facility] [place] [facility] [address] [id number] [place] [address] May, [facility] [address] [id number] [place] [address] May, [facility] [place] [facility] [address] [id number] [place] [address] May, [facility] [place] [facility] [address] [id number] [place] [address] Apr, [facility] [place] [facility] [address] [id number] [place] [address] Apr, [facility] [address] [id number] [place] [address] Apr, [facility] [place] [facility] [address] [id number] [place] [address] Apr, [facility] [place] [facility] [address] [id number] [place] [address] Dec, [facility] [place] [facility] [address] [id number] [place] [address] Dec, [facility] [place] [facility] [address] [id number] [place] [address] Dec, [facility] [place] [facility] [address] [id number] [place] [address] Dec, [facility] [place] [facility] [address] [id number] [place] [address] Oct, [facility] [place] [facility] [address] [id number] [place] [address] May, [facility] [place] [facility] [address] [id number] [place] [address] May, [facility] [place] [facility] [id number] [address] Feb, [facility] [address] [address] Jan, [facility] [address] [address] Jan, [facility] [address] [address] Dec, [facility] [address] [address] Dec, [facility] [id number] [address] Nov, [facility] [id number] [address] Dec, IMMUNIZATIONS No Known Immunizations SOCIAL HISTORY Never Assessed REASON FOR VISIT EMR-[facility] PLAN OF CARE VITAL SIGNS MEDICATIONS Unknown Medications RESULTS No Results PROCEDURES No Known procedures INSTRUCTIONS MEDICATIONS ADMINISTERED No Known Medications
--- OUTSIDE RECORDS SUMMARY | 2018-07-31 11:14 | XMS REPORT ---
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 Name Role Phone Migration, Doctor Unavailable Unavailable PROBLEMS Type Condition ICD9-CM Code WOU34-SY Code Onset Dates Condition Status SNOMED Code Problem Nausea with vomiting 787.01 Active 61640211 Problem Attention deficit disorder of childhood with hyperactivity 314.01 Active 094954006 Problem Social phobia 300.23 Active 27005170 Problem Other general symptoms 780.99 Active 271102990 Problem Contact dermatitis and other eczema due to detergents 692.0 Active 82438705 Problem Other and unspecified noninfectious gastroenteritis and colitis 558.9 Active 30001285 Problem Migraine, unspecified without mention of intractable migraine without mention of status migrainosus 346.90 Active 91629135 ALLERGIES No Information ENCOUNTERS Encounter Location Date Diagnosis [facility] [id number] [place] [address] May, [facility] [id number] [place] [address] May, [facility] [id number] [place] [address] Nov, [facility] [id number] [place] [address] Nov, [facility] [id number] [place] [address] Aug, [facility] [id number] [place] [address] Jul, [facility] [id number] [place] [address] Jul, [facility] [id number] [place] [address] Jul, [facility] [address] [place] [address] 18 May, 2012 [facility] [address] [id number] [place] [address] 10 May, 2012 [facility] [place] [facility] [address] [id number] [place] [address] May, [facility] [address] [id number] [place] [address] May, [facility] [place] [facility] [address] [id number] [place] [address] May, [facility] [place] [facility] [address] [id number] [place] [address] Apr, [facility] [place] [facility] [address] [id number] [place] [address] Apr, [facility] [address] [id number] [place] [address] Apr, [facility] [place] [facility] [address] [id number] [place] [address] Apr, [facility] [place] [facility] [address] [id number] [place] [address] Dec, [facility] [place] [facility] [address] [id number] [place] [address] Dec, [facility] [place] [facility] [address] [id number] [place] [address] Dec, [facility] [place] [facility] [address] [id number] [place] [address] Dec, [facility] [place] [facility] [address] [id number] [place] [address] Oct, [facility] [place] [facility] [address] [id number] [place] [address] May, [facility] [place] [facility] [address] [id number] [place] [address] May, [facility] [place] [facility] [id number] [address] Feb, [facility] [address] [address] Jan, [facility] [address] [address] Jan, [facility] [address] [address] Dec, [facility] [address] [address] Dec, [facility] [id number] [address] Nov, [facility] [id number] [address] Dec, IMMUNIZATIONS No Known Immunizations SOCIAL HISTORY Never Assessed REASON FOR VISIT [place] [place] PLAN OF CARE VITAL SIGNS MEDICATIONS Unknown Medications RESULTS No Results PROCEDURES No Known procedures INSTRUCTIONS MEDICATIONS ADMINISTERED No Known Medications
--- OUTSIDE RECORDS SUMMARY | 2018-07-31 11:14 | XMS REPORT ---
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 Name Role Phone Migration, Doctor Unavailable Unavailable PROBLEMS Type Condition ICD9-CM Code ZVM82-WE Code Onset Dates Condition Status SNOMED Code Problem Nausea with vomiting 787.01 Active 93443812 Problem Attention deficit disorder of childhood with hyperactivity 314.01 Active 291987895 Problem Social phobia 300.23 Active 00356943 Problem Other general symptoms 780.99 Active 544638334 Problem Contact dermatitis and other eczema due to detergents 692.0 Active 27214598 Problem Other and unspecified noninfectious gastroenteritis and colitis 558.9 Active 27612295 Problem Migraine, unspecified without mention of intractable migraine without mention of status migrainosus 346.90 Active 06877084 ALLERGIES No Information ENCOUNTERS Encounter Location Date Diagnosis [facility] [id number] [place] [address] May, [facility] [id number] [place] [address] May, [facility] [id number] [place] [address] Nov, [facility] [id number] [place] [address] Nov, [facility] [id number] [place] [address] Aug, [facility] [id number] [place] [address] Jul, [facility] [id number] [place] [address] Jul, [facility] [id number] [place] [address] Jul, [facility] [address] [place] [address] 18 May, 2012 [facility] [address] [id number] [place] [address] 10 May, 2012 [facility] [place] [facility] [address] [id number] [place] [address] May, [facility] [address] [id number] [place] [address] May, [facility] [place] [facility] [address] [id number] [place] [address] May, [facility] [place] [facility] [address] [id number] [place] [address] Apr, [facility] [place] [facility] [address] [id number] [place] [address] Apr, [facility] [address] [id number] [place] [address] Apr, [facility] [place] [facility] [address] [id number] [place] [address] Apr, [facility] [place] [facility] [address] [id number] [place] [address] Dec, [facility] [place] [facility] [address] [id number] [place] [address] Dec, [facility] [place] [facility] [address] [id number] [place] [address] Dec, [facility] [place] [facility] [address] [id number] [place] [address] Dec, [facility] [place] [facility] [address] [id number] [place] [address] Oct, [facility] [place] [facility] [address] [id number] [place] [address] May, [facility] [place] [facility] [address] [id number] [place] [address] May, [facility] [place] [facility] [id number] [address] Feb, [facility] [address] [address] Jan, [facility] [address] [address] Jan, [facility] [id number] [address] Dec, [facility] [id number] [address] Dec, [facility] [id number] [address] Nov, [facility] [id number] [address] Dec, IMMUNIZATIONS No Known Immunizations SOCIAL HISTORY Never Assessed REASON FOR VISIT EMR[place] [place] PLAN OF CARE VITAL SIGNS MEDICATIONS Medication Instructions Dosage Frequency Start Date End Date Duration Status PredniSONE 10 mg 1 Tablet by Oral route 3 daily for 7 days Jul, Active Zoloft 50 mg 1 Tablet by Oral route 1 time per day (start with 1/2 tablet x 3 days then increase to a full tablet) Jul, Active Naproxen 500 mg take 1 tablet (500 mg) by oral route 2 times per day with food Jul, Active RESULTS No Results PROCEDURES No Known procedures INSTRUCTIONS MEDICATIONS ADMINISTERED No Known Medications
--- OUTSIDE RECORDS SUMMARY | 2018-07-31 11:15 | XMS REPORT | Continuity of Care Document ---
Author Organization Unknown Address Unknown Allergies Active Description Code Type Severity Reaction Onset Reported/Identified Relationship to Patient Clinical Status Yes codeine [id number] Drug Allergy Mild SWELLING, RASH 06/07/2008 Yes [...] Viral/all 09/30/2008 DONY WAITE DO V06.4 Mmr, Itinmfw-pkbmx-oztyjps Vac 09/30/2008 DONY WAITE DO V06.5 Dt, Tetanus-diphtheria [td] ,tdap 09/30/2008 DONY WAITE DO V03.89 Meningococcal, Other Specified Single Bacterial Disease 09/30/2008 DONY WAITE DO V05.3 Hepatitis Viral/all 09/30/2008 DONY WAITE DO V06.4 Mmr, Nvjqium-fzknc-dftcipe Vac 09/30/2008 DONY WAITE DO V06.5 Dt, Tetanus-diphtheria [td] ,tdap 09/30/2008 NATALIE AMADOR APRN V03.89 Meningococcal, Other Specified Single Bacterial Disease 09/30/2008 NATALIE AMADOR APRN V05.3 Hepatitis Viral/all 09/30/2008 NATALIE AMADOR APRN V06.4 Mmr, Jmgquzv-mjjcc-gjvvemj Vac 09/30/2008 NATALIE AMADOR APRN V06.5 Dt, Tetanus-diphtheria [td] ,tdap 09/30/2008 NATALIE AMADOR APRN V03.89 Meningococcal, Other Specified Single Bacterial Disease 09/30/2008 NATALIE AMADOR APRN V05.3 Hepatitis Viral/all 09/30/2008 NATALIE AMADOR APRN V06.4 Mmr, Jdfrfpo-sczmt-pwgwtco Vac 09/30/2008 NATALIE AMADOR APRN V06.5 Dt, Tetanus-diphtheria [td] ,tdap 09/30/2008 V03.89 Meningococcal, Other Specified Single Bacterial Disease 09/30/2008 V05.3 Hepatitis Viral/all 09/30/2008 V06.4 Mmr, Cgtsysa-howzi-dkzoxqv Vac 09/30/2008 V06.5 Dt, Tetanus-diphtheria [td] ,tdap 09/30/2008 V03.89 Meningococcal, Other Specified Single Bacterial Disease 09/30/2008 V05.3 Hepatitis Viral/all 09/30/2008 V06.4 Mmr, Hbkhide-edkam-eabdgkt Vac 09/30/2008 V06.5 Dt, Tetanus-diphtheria [td] ,tdap 09/30/2008 V03.89 Meningococcal, Other Specified Single Bacterial Disease 09/30/2008 V05.3 Hepatitis Viral/all 09/30/2008 V06.4 Mmr, Iffxfok-qcifj-zmoipgn Vac 09/30/2008 V06.5 Dt, Tetanus-diphtheria [td] ,tdap 09/30/2008 OBED BRIZUELA APRN V03.89 Meningococcal, Other Specified Single Bacterial Disease 09/30/2008 OBED BRIZUELA APRN V05.3 Hepatitis Viral/all 09/30/2008 OBED BRIZUELA APRN V06.4 Mmr, Hjknjzm-ypjrs-dmtbxah Vac 09/30/2008 OBED BRIZUELA APRN V06.5 Dt, Tetanus-diphtheria [td] ,tdap 12/26/2008 DONY WAITE DO 461.9 Acute Sinusitis, Unspecified 12/26/2008 DONY WAITE DO 466.0 Acute Bronchitis 12/26/2008 DONY WAITE DO 461.9 Acute Sinusitis, Unspecified 12/26/2008 DONY WAITE DO K 466.0 Acute Bronchitis 12/26/2008 NATALIE AMADOR APRN [...] MIGRAINE HEADACHE 05/13/2012 346.90 MIGRAINE HEADACHE 05/13/2012 OEBD BRIZUELA APRN 346.90 MIGRAINE HEADACHE 06/03/2012 NATALIE [...] PAIN 01/06/2015 MAGY PHILLIP MD Ot R10.84 08/15/2017 ZANE TINSLEY MD Ot F41.9 ANXIETY DISORDER, UNSPECIFIED 08/15/2017 ZANE TINSLEY MD Ot S61.412A LACERATION WITHOUT FOREIGN BODY OF LEFT 08/15/2017 ZANE TINSLEY MD Ot W26.0XXA CONTACT WITH KNIFE, INITIAL ENCOUNTER 08/15/2017 ZANE TINSLEY MD Ot Z23 ENCOUNTER FOR IMMUNIZATION 08/15/2017 ZANE TINSLEY MD Ot Z88.5 ALLERGY STATUS TO NARCOTIC AGENT STATUS 08/18/2017 ZANE TINSLEY MD Ot F41.9 ANXIETY DISORDER, UNSPECIFIED 08/18/2017 ZANE TINSLEY MD Ot S61.412A LACERATION WITHOUT FOREIGN BODY OF LEFT 08/18/2017 ZANE TINSLEY MD Ot W26.0XXA CONTACT WITH KNIFE, INITIAL ENCOUNTER 08/18/2017 ZANE TINSLEY MD, Ot Z23 ENCOUNTER FOR IMMUNIZATION 08/18/2017 ZANE TINSLEY MD, Ot Z88.5 ALLERGY STATUS TO NARCOTIC AGENT STATUS 08/18/2017 ZANE TINSLEY MD Ot F41.9 ANXIETY DISORDER, UNSPECIFIED 08/18/2017 ZANE TINSLEY MD Ot S61.412A LACERATION WITHOUT FOREIGN BODY OF LEFT 08/18/2017 ZANE ITNSLEY MD Ot W26.0XXA CONTACT WITH KNIFE, INITIAL ENCOUNTER 08/18/2017 ZANE TINSLEY MD Ot Z23 ENCOUNTER FOR IMMUNIZATION 08/18/2017 ZANE TINSLEY MD Ot Z88.5 ALLERGY STATUS TO NARCOTIC AGENT STATUS 08/23/2017 ZANE TINSLEY MD Ot F41.9 ANXIETY DISORDER, UNSPECIFIED 08/23/2017 ZANE TINSLEY MD Ot S61.412A LACERATION WITHOUT FOREIGN BODY OF LEFT 08/23/2017 ZANE TINSLEY MD Ot W26.0XXA CONTACT WITH KNIFE, INITIAL ENCOUNTER 08/23/2017 ZANE TINSLEY MD Ot Z23 ENCOUNTER FOR IMMUNIZATION 08/23/2017 ZANE TINSLEY MD Ot Z88.5 ALLERGY STATUS TO NARCOTIC AGENT STATUS Procedures Code [place] [address] ROUTINE VENIPUNCTURE 05/21/2012 44909 CMP 05/21/2012 49853 TSH 05/21/2012 24995 CBC 05/21/2012 PSYCH FATEMEH NORRIS 06/03/2012 90856 PSYCH DIAG RUTHIE W/MED SRVCS 08/04/2012 Results Test Result Range Complete urinalysis with reflex to culture - 07/31/18 07:09 Urine color determination YELLOW NRG Urine clarity determination CLEAR NRG Urine pH measurement by test strip 7 5-9 Specific gravity of urine by test strip 1.010 1.016-1.022 Urine protein assay by test strip, semi-quantitative NEGATIVE NEGATIVE Urine glucose detection by automated test strip NEGATIVE NEGATIVE Erythrocytes detection in urine sediment by light microscopy NEGATIVE NEGATIVE Urine ketones detection by automated test strip NEGATIVE NEGATIVE Urine nitrite detection by test strip NEGATIVE NEGATIVE Urine total bilirubin detection by test strip NEGATIVE NEGATIVE Urine urobilinogen measurement by automated test strip (mass/volume) NORMAL NORMAL Urine leukocyte esterase detection by dipstick NEGATIVE NEGATIVE Automated urine sediment erythrocyte count by microscopy (number/high power field) NONE NRG Automated urine sediment leukocyte count by microscopy (number/high power field) NONE NRG Bacteria detection in urine sediment by light microscopy NEGATIVE NRG Squamous epithelial cells detection in urine sediment by light microscopy NONE NRG Crystals detection in urine sediment by light microscopy NONE NRG Casts detection in urine sediment by light microscopy NONE NRG Mucus detection in urine sediment by light microscopy NEGATIVE NRG Complete urinalysis with reflex to culture NO NRG Complete blood count (CBC) with automated white blood cell (WBC) differential - 07/31/18 07:45 Blood leukocytes automated count (number/volume) 8.6 10*3/uL 4.3-11.0 Blood erythrocytes automated count (number/volume) 5.48 10*6/uL 4.35-5.85 Venous blood hemoglobin measurement (mass/volume) 15.8 g/dL 13.3-17.7 Blood hematocrit (volume fraction) 47 % 40-54 Automated erythrocyte mean corpuscular volume 86 [foz_us] 80-99 Automated erythrocyte mean corpuscular hemoglobin (mass per erythrocyte) 29 pg 25-34 Automated erythrocyte mean corpuscular hemoglobin concentration measurement (mass/volume) 34 g/dL 32-36 Automated erythrocyte distribution width ratio 13.6 % 10.0- 14.5 Automated blood platelet count (count/volume) 269 10*3/uL 130-400 Automated blood platelet mean volume measurement 9.0 [foz_us] 7.4-10.4 Automated blood neutrophils/100 leukocytes 49 % 42-75 Automated blood lymphocytes/100 leukocytes 36 % 12-44 Blood monocytes/100 leukocytes 12 % 0-12 Automated blood eosinophils/100 leukocytes 2 % 0-10 Automated blood basophils/100 leukocytes 1 % 0-10 Blood neutrophils automated count (number/volume) 4.2 10*3 1.8-7.8 Blood lymphocytes automated count (number/volume) 3.1 10*3 1.0-4.0 Blood monocytes automated count (number/volume) 1.1 10*3 0.0- 1.0 Automated eosinophil count 0.2 10*3/uL 0.0-0.3 Automated blood basophil count (count/volume) 0.1 10*3/uL 0.0-0.1 Comprehensive metabolic panel - 07/31/18 07:45 Serum or plasma sodium measurement (moles/volume) 140 mmol/L 135-145 Serum or plasma potassium measurement (moles/volume) 4.0 mmol/L 3.6-5.0 Serum or plasma chloride measurement (moles/volume) 103 mmol/L 98-107 Carbon dioxide 28 mmol/L 21-32 Serum or plasma anion gap determination (moles/volume) 9 mmol/L 5-14 Serum or plasma urea nitrogen measurement (mass/volume) 14 mg/dL 7-18 Serum or plasma creatinine measurement (mass/volume) 1.04 mg/dL 0.60-1.30 Serum or plasma urea nitrogen/creatinine mass ratio 13 NRG Serum or plasma creatinine measurement with calculation of estimated glomerular filtration rate > NRG Serum or plasma glucose measurement (mass/volume) 97 mg/dL 70-105 Serum or plasma calcium measurement (mass/volume) 9.9 mg/dL 8.5-10.1 Serum or plasma total bilirubin measurement (mass/volume) 0.5 mg/dL 0.1-1.0 Serum or plasma alkaline phosphatase measurement (enzymatic activity/volume) 62 U/L 40-136 Serum or plasma aspartate aminotransferase measurement (enzymatic activity/volume) 16 U/L 5-34 Serum or plasma alanine aminotransferase measurement (enzymatic activity/volume) 31 U/L 0-55 Serum or plasma protein measurement (mass/volume) 7.5 g/dL 6.4-8.2 Serum or plasma albumin measurement (mass/volume) 4.8 g/dL 3.2-4.5 Serum or plasma C reactive protein measurement (mass/volume) - 07/31/18 07:45 Serum or plasma C reactive protein measurement (mass/volume) 0.14 mg/dL 0.00-0.50 Encounters ACCT No. Visit Date/Time Discharge Status Pt. Type Provider Facility Loc./Unit Complaint [id number] 08/04/2012 12:25:00 08/04/2012 23:59:59 [facility] Outpatient OBED BRIZUELA APRN [id number] 06/03/2012 12:55:00 06/03/2012 23:59:59 [facility] Outpatient NATALIE AMADOR APRN [id number] 05/21/2012 15:40:00 05/21/2012 23:59:59 [facility] Outpatient NATALIE AMADOR APRN [id number] 05/13/2012 14:32:00 05/13/2012 23:59:59 [facility] [place] [id number] 05/31/2011 11:57:00 05/31/2011 23:59:59 [facility] Outpatient DONY WAITE DO [id number] 08/04/2012 12:25:00 Document Registration [id number] 07/29/2012 11:55:00 Document Registration [id number] 07/25/2012 09:32:00 Document Registration [id number] 08/14/2017 22:28:00 08/15/2017 01:31:00 DIS Emergency ALVINA ROSE, ZANE Hassan [facility] ER HAND INJ-PLAYING W/KNIFE [id number] 01/05/2015 13:32:00 01/05/2015 15:24:00 DIS Emergency MAGY PHILLIP MD Via [facility] ER ABD PAIN [id number] 07/19/2013 12:59:00 07/19/2013 23:59:59 CLS Emergency MELQUIADES FOSTER Via [facility] ER DIZZINESS, HEADACHE [id number] 11/01/2012 15:23:00 11/01/2012 23:59:59 CLS Outpatient [id number] 10/23/2012 14:54:00 10/23/2012 23:59:59 CLS Outpatient [id number] 08/22/2012 13:19:00 08/22/2012 23:59:59 CLS Outpatient [id number] 08/19/2012 13:44:00 08/19/2012 17:10:00 DIS Emergency JT DONNELLY DO Via [facility] ER BACK PAIN [id number] 08/08/2012 14:02:00 08/08/2012 23:59:59 CLS Outpatient [id number] 07/28/2012 08:52:00 07/28/2012 23:59:59 CLS Outpatient [id number] 07/31/2018 07:43:00 Document Registration [id number] 08/19/2011 17:52:00 Document Registration [id number] 07/23/2009 21:02:00 Document Registration
--- NOTE | 2018-07-31 17:48 | Consultation (Surgery) ---
History of Present Illness History of Present Illness Patient Consulted On(los/time) 07/31/18 17:44 Date Seen by Provider: Jul 31, 2018 Time Seen by Provider: 09:58 History of Present Illness Consult requested by Dr. Guajardo for umbilical abscess Patient is a 22-year-old male who states he's been having issues with his umbilicus draining and becoming tender for about 2 years. Patient states that it be discharged to get swollen up and then will typically drain. He will usually get antibiotics and it helps go away faster. Patient will last couple days is been noticing increasing pain at the umbilicus and then begin having limited drainage and today it strained even more. It's little bit foul- smelling. He has moderate discomfort. Nothing was seems to make it better activity and sweating usually seems to make it worse she states. He denies any nausea vomiting fever sweats chills shortness of breath or chest pain at this time. He has CT scan performed just demonstrated some thickening around the umbilicus. Allergies and Home Medications Allergies Coded Allergies: codeine (Unverified Allergy, Mild, SWELLING, RASH, 06/07/08) Uncoded Allergies: OPIOIDS (Allergy, Severe, 01/05/15) CODIENE (Allergy, Mild, 07/21/08) Home Medications Sulfamethoxazole/Trimethoprim 1 Each Tablet, 1 EACH PO BID Prescribed by: ZANE TINSLEY on 08/15/17 0128 Sulfamethoxazole/Trimethoprim 1 Each Tablet, 1 EACH PO BID Prescribed by: ABBEY GUAJARDO on 07/31/18 1045 Patient Home Medication List Home Medication List Reviewed: Yes Past Ihbkqmz-Twhmtx-Alekcq Hx Patient Social History Alcohol Use: Denies Use Recreational Drug Use: No Smoking Status: Never a Smoker Recent Foreign Travel: No Contact w/Someone Who Travel: No Recent Infectious Disease Expo: No Recent Hopitalizations: No Immunizations Up To Date Tetanus Booster (TDap): Unknown Seasonal Allergies Seasonal Allergies: Yes Surgeries History of Surgeries: No Respiratory History of Respiratory Disorde: No Cardiovascular History of Cardiac Disorders: No Neurological History of Neurological Disord: No Genitourinary History of Genitourinary Disor: No Gastrointestinal History of Gastrointestinal Di: No Musculoskeletal History of Musculoskeletal Dis: No Endocrine History of Endocrine Disorders: No HEENT History of HEENT Disorders: No Cancer History of Cancer: No Psychosocial History of Psychiatric Problem: Yes Behavioral Health Disorders: Anxiety Integumentary History of Skin or Integumenta: No Blood Transfusions History of Blood Disorders: No Adverse Reaction to a Blood Tr: No Family Medical History Significant Family History: No Pertinent Family Hx Review of Systems-General Constitutional: no symptoms reported EENTM: no symptoms reported Respiratory: no symptoms reported Cardiovascular: no symptoms reported Gastrointestinal: see HPI Genitourinary: no symptoms reported Musculoskeletal: no symptoms reported Skin: no symptoms reported Psychiatric/Neurological: No Symptoms Reported Physical Exam-General Problems Physical Exam Vital Signs Vital Signs - First Documented 07/31/18 07:06 Temp 98.3 Pulse 77 Resp 18 B/P (MAP) 134/73 (93) Pulse Ox 98 O2 Delivery Room Air Capillary Refill : Less Than 3 Seconds General Appearance: WD/WN, no apparent distress HEENT: PERRL/EOMI, normal ENT inspection Neck: non-tender, supple Respiratory: chest non-tender, no respiratory distress, no accessory muscle use Cardiovascular: regular rate, rhythm Gastrointestinal: soft, other (drainage from the umbilicus down the base. Tender at the umbilicus. 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, no motor/sensory deficits, alert, normal mood/affect, oriented x 3 Skin: normal color, warm/dry Lymphatic: no adenopathy Data Review Labs Laboratory Tests 07/31/18 07:09: Urine Color YELLOW, Urine Clarity CLEAR, Urine pH 7, Urine Specific Gordon 1.010L, Urine Protein NEGATIVE, Urine Glucose (UA) NEGATIVE, Urine Ketones NEGATIVE, Urine Nitrite NEGATIVE, Urine Bilirubin NEGATIVE, Urine Urobilinogen NORMAL, Urine Leukocyte Esterase NEGATIVE, Urine RBC (Auto) NEGATIVE, Urine RBC NONE, Urine WBC NONE, Urine Squamous Epithelial Cells NONE, Urine Crystals NONE, Urine Bacteria NEGATIVE, Urine Casts NONE, Urine Mucus NEGATIVE, Urine Culture Indicated NO 07/31/18 07:45: White Blood Count 8.6, Red Blood Count 5.48, Hemoglobin 15.8, Hematocrit 47, Mean Corpuscular Volume 86, Mean Corpuscular Hemoglobin 29, Mean Corpuscular Hemoglobin Concent 34, Red Cell Distribution Width 13.6, Platelet Count 269, Mean Platelet Volume 9.0, Neutrophils (%) (Auto) 49, Lymphocytes (%) (Auto) 36, Monocytes (%) (Auto) 12, Eosinophils (%) (Auto) 2, Basophils (%) (Auto) 1, Neutrophils # (Auto) 4.2, Lymphocytes # (Auto) 3.1, Monocytes # (Auto) 1.1H, Eosinophils # (Auto) 0.2, Basophils # (Auto) 0.1, Sodium Level 140, Potassium Level 4.0, Chloride Level 103, Carbon Dioxide Level 28, Anion Gap 9, Blood Urea Nitrogen 14, Creatinine 1.04, Estimat Glomerular Filtration Rate > 60, BUN/Creatinine Ratio 13, Glucose Level 97, Calcium Level 9.9, Corrected Calcium , Total Bilirubin 0.5, Aspartate Amino Transf (AST/SGOT) 16, Alanine Aminotransferase (ALT/SGPT) 31, Alkaline Phosphatase 62, C-Reactive Protein High Sensitivity 0.14, Total Protein 7.5, Albumin 4.8H Microbiology 07/31/18 Gram Stain - Final, Resulted 07/31/18 Wound Culture, Resulted Pending Assessment/Plan Assessment/Plan Assessment/Plan 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 He's had this for approximately 2 years ago comes and goes. Since it is draining patient instructed to let it drain and perform wound care on it. Patient instructed to take antibiotics as prescribed. If he has any worsening of symptoms he should be reevaluated that time. Follow-up with me in 2 weeks. Patient agrees with plan. WALLACE RUEDA DO Jul 31, 2018 17:48
== END 2018-07-31 10:55 | disposition home or self-care (01) ==
LOC: EDUNIT# 06:54 → ER 06:57
DX: L02.216 Cutaneous abscess of umbilicus (principal); F41.9 Anxiety disorder, unspecified; Z88.5 Allergy status to narcotic agent; Z88.8 Allergy status to other drugs, medicaments and biological substances
CPT/HCPCS: 36415; 74177; 80053; 81000; 85025; 86141; 87070; 87205

== ENCOUNTER 2019-02-10 20:12 | Emergency (ER) | payer SELFPAY ==
[~2019-02-10] VITALS: Ht 180 cm; Wt 83.2 kg
[2019-02-10] MEDS ORDERED: RX-GENTAMICIN SULFATE 0.3% OP 5 ML BTL OP STA (20:40)
[2019-02-10] MEDS ORDERED: BSS 15 ML IR ONE (20:45)
[2019-02-10] MEDS ORDERED: FLUORESCEIN (FLUOR-I-STRIPS) 1 MG STRP OU ONE (20:45)
[2019-02-10] MEDS ORDERED: TETRACAINE 0.5% OPHTH SOLN 4 ML BTL (SINGLE DOSE ONLY) OU ONE (20:45)
--- NOTE | 2019-02-10 20:46 | ED EENT ---
History of Present Illness General Chief Complaint: Eye Problems Stated Complaint: L EYE SWOLLEN Nursing Triage Note: Pt amb to triage with c/o possible foreign body to Lt eye. Pt reports while driving home, he turned on his defrost, and sudden felt severe irritation to Lt eye. Pt states, "I can feel it moving around on my eyeball." Pt reports to have attempted to flush FB with water and saline eye drops with no relief. Source: patient Exam Limitations: no limitations History of Present Illness Date Seen by Provider: Feb 10, 2019 Time Seen by Provider: 20:42 Initial Comments To ER with sudden onset of discomfort to the left eye while driving home. He turned on his defroster and felt a sudden onset of discomfort in his eye, believes something went in it. He tried blinking this out and rinsing his eye at home but no relief. Does not wear contact lenses. Timing/Duration: this evening Severity: moderate Location: eye (L) Prearrival Treatment: no prearrival treatment Associated Symptoms: denies symptoms Allergies and Home Medications Allergies Coded Allergies: codeine (Unverified Allergy, Mild, SWELLING, RASH, 06/07/08) Uncoded Allergies: OPIOIDS (Allergy, Severe, Anaphylaxis, 07/31/18) CODIENE (Allergy, Mild, 07/21/08) Home Medications Sulfamethoxazole/Trimethoprim 1 Each Tablet, 1 EACH PO BID Prescribed by: ZANE TINSLEY on 08/15/17 0128 Sulfamethoxazole/Trimethoprim 1 Each Tablet, 1 EACH PO BID Prescribed by: ABBEY FLOWER on 07/31/18 1045 Patient Home Medication List Home Medication List Reviewed: Yes Review of Systems Review of Systems Constitutional: see HPI Eyes: See HPI, Foreign Body Sensation Ears: No Symptoms Reported Nose: no symptoms reported Mouth: no symptoms reported Throat: no symptoms reported Respiratory: no symptoms reported Musculoskeletal: no symptoms reported Past Cwzanjp-Epfjil-Snbllf Hx Patient Social History Alcohol Use: Denies Use Recreational Drug Use: No Smoking Status: Never a Smoker 2nd Hand Smoke Exposure: No Recent Foreign Travel: No Contact w/Someone Who Travel: No Recent Infectious Disease Expo: No Recent Hopitalizations: No Immunizations Up To Date Tetanus Booster (TDap): Unknown Seasonal Allergies Seasonal Allergies: Yes Past Medical History Surgeries: No Respiratory: No Cardiac: No Neurological: No Genitourinary: No Gastrointestinal: No Musculoskeletal: No Endocrine: No HEENT: No Cancer: No Psychosocial: Yes Anxiety Integumentary: No Blood Disorders: No Adverse Reaction/Blood Tranf: No Family Medical History No Pertinent Family Hx Physical Exam Vital Signs Vital Signs - First Documented 02/10/19 20:19 Temp 36.6 Pulse 72 Resp 17 B/P (MAP) 114/68 (83) Pulse Ox 99 O2 Delivery Room Air Height, Weight, BMI Height: 5'10.00" Weight: 188lbs. oz. 85.535395ir; 25.00 BMI Method:Stated General Appearance: WD/WN, no apparent distress Eyes: left eye other (there is no corneal abrasion or area of dye uptake visualized. Pupils equal round reactive. There is what appears to be an internal hordeolum upper eyelid lid margin conjunctival surface. No foreign bodies identified.); bilateral eye PERRL, bilateral eye EOMI, bilateral eye conjunctival hemorrhage Ears: bilateral ear auricle normal, bilateral ear canal normal, bilateral ear TM normal Mouth/Throat: normal mouth inspection, pharynx normal Neck: non-tender, full range of motion Respiratory: no respiratory distress, no accessory muscle use Neurologic/Psychiatric: alert, normal mood/affect, oriented x 3 Skin: normal color, warm/dry Procedures/Interventions Suture Size: 4-0 Progress/Results/Core Measures Results/Orders My Orders Orders - VERONIQUE BAEZ APRN Tetracaine 0.5% Ophth Rachel Sdv (Tetracai (02/10/19 20:45) Fluorescein Strips ([id number]) (02/10/19 20:45) Balanced Salt Irrigation Soln (Bss Irrig (02/10/19 20:45) Rx-Gentamicin Ophth Soln (Rx-Gentamicin (02/10/19 20:40) Vital Signs/I&O 02/10/19 20:19 Temp 36.6 Pulse 72 Resp 17 B/P (MAP) 114/68 (83) Pulse Ox 99 O2 Delivery Room Air Blood Pressure Mean: 83 Departure Impression Primary Impression: Internal hordeolum of left eye Qualified Codes: H00.024 - Hordeolum internum left upper eyelid Disposition: 01 HOME, SELF-CARE Condition: Improved Departure-Patient Inst. Decision time for Depature: 20:44 Referrals: JEAN GARCIA OD,LOCAL PHYSICIAN (PCP) Primary Care Physician Patient Instructions: [facility] ([place]) Add. Discharge Instructions: 1. Warm compresses to the eye 4 times daily 15 minutes at a time. Eyedrops as directed. Return to ER for any concerns. For any persistent symptoms you need to follow-up with optometry. A phone number has been provided for you. All discharge instructions reviewed with patient and/or family. Voiced understanding. VERONIQUE BAEZ APRN Feb 10, 2019 20:46
[2019-02-10 20:50] VITALS: BP 114/68
== END 2019-02-10 20:50 | disposition home or self-care (01) ==
LOC: EDUNIT# 20:12 → ER 20:13
DX: H00.024 Hordeolum internum left upper eyelid (principal); F41.9 Anxiety disorder, unspecified; Z88.5 Allergy status to narcotic agent
CPT/HCPCS: 99283